=== PATIENT | female | born 1980 | race Caucasian/White ===

== ENCOUNTER 2020-03-23 11:31 | Emergency (ER) | payer OTHER, SELFPAY ==
[2020-03-23 11:32] VITALS: BP 121/83; PULSE 83; RESP 16; TEMP 37.1; O2SAT 100; BMI 30.2
--- NOTE | 2020-03-23 11:54 | EKG12_ITS ---
Test Reason : SYNCOPE Blood Pressure : / mmHG Vent. Rate : 092 BPM Atrial Rate : 092 BPM P-R Int : 166 ms QRS Dur : 094 ms QT Int : 366 ms P-R-T Axes : 065 -31 047 degrees QTc Int : 452 ms Normal sinus rhythm Left axis deviation Cannot rule out Inferior infarct , age undetermined Abnormal ECG Confirmed by ADELINA BARNES ([id number]), editor farm journal JADE WILLARD ([id number]) on 03/29/2020 9:54:54 AM Referred By: TRUDI Confirmed By:ADELINA BARNES
--- NOTE | 2020-03-23 11:54 | CT_ITS ---
STUDY: CT BRAIN WITHOUT CONTRAST REASON FOR EXAM: Female, 39 years old. Syncope. RADIATION DOSAGE (If Supplied By Facility): CTDIvol = ( 44.99 ) mGy, DLP = ( 745.49 ) mGycm TECHNIQUE: Transaxial CT imaging of the brain was performed without administration of intravenous contrast material. Individualized dose optimization techniques were used for this CT. COMPARISON: No relevant priors. FINDINGS: Normal soft tissue structures. Postsurgical changes from prior occipital craniotomy. Normal size ventricles and extra-axial spaces for the patient''s age. Normal white matter tracts of the cerebral hemispheres. Normal basal ganglia and thalami. Normal brainstem. Normal cerebellum. 3 calcified extra-axial lesions most likely represent meningiomas are seen in the right and left frontal regions the largest measures 1.2 cm. There is no intracranial hemorrhage. There are no findings of an acute ischemic infarction. Normal visualized paranasal sinuses. CT/Brain/Head without Contrast IMPRESSION: No acute intracranial abnormality. Electronically Signed: Eber Carr, at 13:16 EDT Tel , Service support ,
--- NOTE | 2020-03-23 12:05 | NURSING ---
NO OLD EKGS
[2020-03-23] MEDS: 0.9% Normal Saline 1,000 ML 150 ML IV (12:18)
[2020-03-23 12:29] VITALS: BP 118/77; BP 125/95; BP 128/91; PULSE 102; PULSE 110; PULSE 113
[2020-03-23 12:32] VITALS: BP 125/95; PULSE 105; RESP 18; O2SAT 98
[2020-03-23 12:43] LABS: Bacteria 0 SEEN /hpf (None Seen); Mucous, Urine 0 SEEN /hpf (<or=2+); Red Blood Cells-Urine 0 SEEN /hpf (0-5); White Blood Cells 0 SEEN /hpf (0-5)
[2020-03-23 12:43] LABS: Absolute Lymphocyte Count 1.98 X10^3/uL (0.83-4.51); Absolute Neutrophil Count 7.4 X10^3/uL (2.0-7.7); Basophil# 0.07 X10^3/uL; Basophil% 0.7 % (0-1); Eosinophil# 0.06 X10^3/uL; Eosinophils% 0.6 % (0-5); Hematocrit 34.7 % (37-47); Hemoglobin 10.5 g/dL (12.0-15.0); Lymphocyte # 1.98 X10^3/ul (4.0); Lymphocyte % 18.9 % (19-41); Mean Corp Hgb Conc 30.3 g/dL (32-36); Mean Corpuscular Hgb 19.5 pg (27.0-32.0); Mean Corpuscular Volume 64.5 fL (81-99); Mean Platelet Vol. 10.5 fl (6.2-12.0); Monocyte# 0.76 X10^3/uL; Monocyte% 7.3 % (0-10); NRBC Flagged by Analyzer 0 % (0-5); Neutrophil # 7.44 X10^3/uL (2.7-7.7); Neutrophil % 70.9 % (47-70); Platelet Count 299 K/mm3 (150-450); RBC Distribution Width CV 15.9 % (11.6-14.6); RBC Distribution Width SD 33.8 fl (35.1-43.9); Red Blood Count 5.38 M/mm3 (4.2-5.4); White Blood Count 10.5 K/mm3 (4.4-11.0)
[2020-03-23 12:56] LABS: Anion Gap 4 (5-15); BUN 9 mg/dL (7-18); BUN/Creat Ratio 10.2 RATIO (10-20); Calcium,Total 8.9 mg/dL (8.5-10.1); Chloride 110 mmol/L (98-107); Creatinine, Serum 0.88 mg/dL (0.55-1.02); EST Glomerular Filtration Rate 75 mL/min (>60); Est Glom Filt Rate - Afr Amer 91 mL/min (>60); Estimated Creatinine Clearance 73.38 ml/min; Glucose 88 mg/dL (74-106); Sodium Level 140 mmol/L (136-145)
[2020-03-23 13:00] VITALS: BP 100/71; PULSE 90; RESP 20; O2SAT 100
[2020-03-23 13:13] LABS: Color, Urine Yellow (Yellow); Glucose, Dipstick Normal (Normal); Ketone-Dipstick Negative (Negative); Leukocyte Esterase-Dipstick Negative /ul (Negative); Nitrite-Dipstick Negative (Negative); Occult Blood-Urine Negative /ul (Negative); Protein-Dipstick Negative (Negative); Specific Gravity, Urine 1.005 (1.002-1.030); Urine Bilirubin Dipstick Negative (Negative); Urine Clarity Clear (Clear); Urine Urobilinogen Normal (Normal)
[2020-03-23 13:15] LABS: Amphetamine Urine VISTA NEGATIVE (<1000 ng/mL); Barbiturate Urine VISTA NEGATIVE (< 200 ng/mL); Benzodiazepine Urine VISTA NEGATIVE (< 200 ng/mL); Cocaine Urine VISTA NEGATIVE (< 300 ng/mL); Ecstacy Urine VISTA NEGATIVE (< 500 ng/mL); Methadone Urine VISTA NEGATIVE (< 300 ng/mL); PCP Urine VISTA NEGATIVE (< 25 ng/mL); THC Urine VISTA NEGATIVE (< 50 ng/mL); Vista UDS pH Range 6
[2020-03-23 13:19] LABS: Squamous Epithelial Cells - UA 0-5 SEEN /hpf (5-10)
--- NOTE | 2020-03-23 14:02 | ED.VISSUMM ---
- ER Visit Summary Date of Service: 03/23/20 Chief Complaint: [Syncope] History of Present Illness: The patient is a 39 F [presents the emergency department with syncopal episode that occurred today. Patient states that she was at work and remembers talking to a client and started saying that she did not feel well and felt weird. Patient remembers the time was about 9:30 AM and then she next remembers coming to around 10:23 and noted that she was incontinent of urine. Patient does not remember she woke up on the floor or where she was when she started coming to. She is never had an episode like this before. She at this time just does not feel like her self and just feels out of it. She denies recent illness. She does have history of Chiari malformation that required surgery 4 years ago. She does have history of migraines. She does not have a seizure history. Patient denies any chest pain or palpitations. Recent travel or surgery. Patient does not have history of PE or DVT.] Physical Examination: [HEENT-PERRLA, EOMI. Cranial nerves II through XII grossly intact. TMs clear. Mucous membranes moist. No adenopathy. No lip or tongue wounds noted. Cardiovascular-regular rate and rhythm without murmur or ectopy Lungs-clear to auscultation, chest wall stable without crepitus or subcu emphysema Abdomen-normoactive bowel sounds, soft, nontender, no rebound or rigidity, no peritoneal signs. Neuro icor-[id number]-nose and heel granados testing within normal limits, negative Romberg, negative for drift, fundi benign Extremities-intact ?4, normal range of motion, normal pulses, atraumatic] Test Results: [EKG obtained arrival shows sinus rhythm with a ventricular rate of 92 bpm with no acute segment changes. CBC with differential was normal other than a mild anemia of 10.5 hemoglobin. Chemistries unremarkable. Urinalysis was normal. Troponin is less than 0.015. Orthostatics were negative. Toxicology screen was negative. Alcohol negative. CT of the brain showed nothing acute.] Emergency Department Course and Treatment: [IV line established on arrival. Patient was given normal saline.] Treatment Plan: [Patient to follow-up with her primary care physician in 3 to 5 days. At this point etiology of her syncope is unclear. In the differential would be seizure activity versus cardiac dysrhythmia versus vasovagal episode.] Disposition: [Discharged home in stable condition] Impression: [Syncope-etiology uncertain] This note was generated with [employer] dictation software. It may contain incorrect words, spelling, and punctuation that were not noted in review of the chart prior to signing ED Disposition - Plan for ED Patient: Referrals: [facility] [Other]
--- NOTE | 2020-03-23 14:07 | ED.DEP ---
ED Disposition - Plan for ED Patient: Instructions: ED Fainting Uncertain Cause Referrals: [facility] [Other] - 3-5 Days
[2020-03-23 14:14] VITALS: BP 123/77; PULSE 98; RESP 18; O2SAT 98
== END 2020-03-23 14:18 | disposition home or self-care (01) ==
LOC: ED 12:59
PROVIDERS: Emergency Provider Emergency Medicine
DX: R55 Syncope and collapse (principal); R32 Unspecified urinary incontinence; Z79.899 Other long term (current) drug therapy
CPT/HCPCS: 70450; 80048; 80307; 80320; 81001; 84484; 85025; 93005; 96360; 96361; 99285; J7030; A4216; G0480